=== PATIENT | male | born 1970 | race Caucasian/White ===

== ENCOUNTER 2021-10-14 21:08 | Observation (INO) | payer OTHER, SELFPAY ==
[2021-10-14 21:18] VITALS: BP 147/86; PULSE 123; RESP 26; TEMP 38.6; O2SAT 94; BMI 23.3
--- NOTE | 2021-10-14 21:23 | XRR_ITS ---
PROCEDURE INFORMATION: Exam: XR Chest Exam date and time: 10/14/2021 10:14 PM Age: 51 years old Clinical indication: Fever and shortness of breath; Patient HX: SOB with fever TECHNIQUE: Imaging protocol: Radiologic exam of the chest. Views: 1 view. COMPARISON: CT abdomen pelvis w con* [id number] 10/14/2021 9:57 PM FINDINGS: Lungs: Right lower lobe consolidation noted. Pleural spaces: Unremarkable. No pleural effusion. No pneumothorax. Heart/Mediastinum: No cardiomegaly. Bones/joints: No acute fracture. XR/XR chest 1V portable [id number] IMPRESSION: Right lower lobe consolidation noted. Findings may be seen with pneumonia.
--- NOTE | 2021-10-14 21:23 | CTR_ITS ---
PROCEDURE INFORMATION: Exam: CT Abdomen And Pelvis With Contrast Exam date and time: 10/14/2021 9:57 PM Age: 51 years old Clinical indication: Abdominal pain; Generalized; Prior surgery; Surgery type: Appy; Patient HX: C/O diffuse abd pain with fever. TECHNIQUE: Imaging protocol: Computed tomography of the abdomen and pelvis with contrast. Radiation optimization: All CT scans at this facility use at least one of these dose optimization techniques: automated exposure control; mA and/or kV adjustment per patient size (includes targeted exams where dose is matched to clinical indication); or iterative reconstruction. Contrast material: OMNI 350; Contrast volume: 80 ml; Contrast route: INTRAVENOUS (IV); COMPARISON: No relevant prior studies available. RADIATION DOSE METRICS: Total DLP (mGy-cm): 588.23 FINDINGS: Lungs: Severe right lower lobe pneumonia. Liver: Normal. No mass. Gallbladder and bile ducts: Normal. No calcified stones. No ductal dilation. Pancreas: Normal. No ductal dilation. Spleen: Normal. No splenomegaly. Adrenal glands: Normal. No mass. Kidneys and ureters: Right renal simple cyst measuring >1.0 cm . Multiple left renal simple cysts with the largest measuring > 1.0 cm. Stomach and bowel: Unremarkable. No obstruction. No mucosal thickening. Appendix: No evidence of appendicitis. Intraperitoneal space: Unremarkable. No free air. No significant fluid collection. Vasculature: Calcification of the abdominal aorta and/or iliac arteries consistent with atherosclerotic vessel disease. Lymph nodes: Unremarkable. No enlarged lymph nodes. Urinary bladder: Unremarkable as visualized. Reproductive: Nonspecific prostate calcifications. Bones/joints: Unremarkable. No acute fracture. Soft tissues: Unremarkable. CT/CT abdomen pelvis w con* [id number] IMPRESSION: 1. Severe right lower lobe pneumonia which may be a destructive pneumonia. 2. No acute abdominal findings. COMMENTS: Consistent with the [employer]'s Incidental Findings Committee white paper (J Am Franklin Radiol 2018): Any incidental renal lesion less than 1 cm or classified as too small to characterize, or any incidental cystic renal lesion characterized as simple-appearing, is likely benign. No follow-up imaging is recommended for these lesions per consensus recommendations based on imaging criteria.
--- NOTE | 2021-10-14 21:28 | W.ED.NAVMDI ---
HPI - Nausea/Vomiting/Diarrhea General: Chief complaint: Nausea/Vomiting/Diarrhea Stated complaint: N/V Time Seen by Provider: 10/14/21 21:23 Source: patient Mode of arrival: ambulatory Limitations: no limitations History of Present Illness: 51-year-old male who is a smoker along with heavy drinker and states that he has been having vomiting since states not been able to tolerate any p.o. has had multiple episodes of vomiting states has been feeling dehydrated he states today has been having fevers as well he does have a fever here 1-1.4. Denies headache or neck pain he does have body aches denies any shortness of breath denies any abdominal pain has some very mild cramping. Denies any diarrhea. Associated nausea: Yes Associated symtoms: Reports nausea; Denies chest pain, dysuria or headache(s) Review of Systems Const: Reports: fever(s), chills and body aches Eyes: Denies: blurry vision or eye discomfort ENMT: Denies: throat pain or dental pain Card: Denies: chest pain Resp: Denies: dyspnea GI: Reports: nausea and vomiting : Denies: dysuria Musc: Denies: neck pain or back pain Skin/Breast: Denies: rash Neuro: Denies: headache(s) Psych: Denies: depression Gio/Lymph: Denies: easy bruising All/Imm: Denies: urticaria PFSH ED PFSH: Medical History (Updated 10/14/21 @ 22:54 by Li Garcia MD) No pertinent past medical history Social History Smoking and tobacco status: current every day smoker Physical Exam Const: COMMON NORMALS: patient oriented x3 HENMT: COMMON NORMALS: normocephalic and atraumatic HEAD & SCALP: normocephalic and atraumatic Eye: COMMON NORMALS: Equal, round and reactive pupils present and EOMs intact bilaterally PUPIL: Yes Equal, round and reactive pupils present Neck/C-Spine: COMMON NORMALS: full ROM and supple Chest: COMMONS NORMALS: normal inspection of the chest and normal palpation of entire chest wall Resp: COMMON NORMALS: normal respiratory effort, No retractions, No use of accessory muscles and clear to auscultation bilaterally AUSCULTATION: clear to auscultation bilaterally Cardio: COMMON NORMALS: regular rhythm and No murmurs present (Cardio) RATE: tachycardic RHYTHM: regular rhythm GI: COMMON NORMALS: Normal to inspection, nondistended, normoactive bowel sounds present, Soft to palpation, non-tender and no masses PALPATION: Yes Soft to palpation Extremity: COMMON NORMALS: normal to inspection and full ROM Neuro: COMMON NORMALS: patient oriented x3, moves all extremities and no focal motor deficits Psych: COMMON NORMALS: mental status grossly normal, Normal thought process present and cooperative THOUGHT PROCESS: Normal thought process present Skin: COMMON NORMALS: no rashes or lesions noted and no wounds GENERAL SKIN EXAM: no rashes or lesions noted Course Vital Signs: Vital signs: Vital Signs Temperature 101.4 F H 10/14/21 21:18 Pulse Rate 90 10/14/21 23:02 Respiratory Rate 18 10/14/21 23:02 Blood Pressure 111/66 10/14/21 23:02 Pulse Oximetry 96 10/14/21 23:02 Oxygen Delivery Me thod 10/14/21 23:02 MDM - Nausea/Vomiting/Diarrhea Medical Decision Making Patient presents with fever along with vomiting he also has a significant right lower lobe pneumonia on x-ray and CT of his abdomen. Patient has had vomiting I feel he will likely not be able to tolerate p.o. antibiotics spoke to hospitalist will admit at this time for IV antibiotics. Lab Data : 10/14/21 21:36 10/14/21 21:36 Radiology Impressions Abdomen/Pelvis CT 10/14/21 21:23 IMPRESSION: 1. Severe right lower lobe pneumonia which may be a destructive pneumonia. 2. No acute abdominal findings. COMMENTS: Consistent with the [employer]'s Incidental Findings Committee white paper (J Am Franklin Radiol 2018): Any incidental renal lesion less than 1 cm or classified as too small to characterize, or any incidental cystic renal lesion characterized as simple-appearing, is likely benign. No follow-up imaging is recommended for these lesions per consensus recommendations based on imaging criteria. Laboratory Results WBC 9.8 10^3/uL (4.0-10.0) 10/14/21 21:36 RBC 4.67 10^6/uL (4.1-5.3) 10/14/21 21:36 Hgb 15.1 g/dL (11.7-16.6) 10/14/21 21:36 Hct 43.0 % (42.0-52.0) 10/14/21 21:36 MCV 92.1 fl (80-94) 10/14/21 21:36 MCH 32.3 pg (28.0-34.0) 10/14/21 21:36 MCHC 35.1 g/dL (30.0-36.0) 10/14/21 21:36 RDW 12.7 % (12.1-15.1) 10/14/21 21:36 Plt Count 265 10^3/cmm (130-400) 10/14/21 21:36 MPV 9.7 fL (7.4-10.4) 10/14/21 21:36 Neut % (Auto) 82.3 % 10/14/21 21:36 Lymph % (Auto) 10.2 % 10/14/21 21:36 Cascade % (Auto) 6.3 % 10/14/21 21:36 Eos % (Auto) 0.2 % 10/14/21 21:36 Baso % (Auto) 0.4 % 10/14/21 21:36 Neut # (Auto) 8.03 10^3/uL (1.8-7.7) H 10/14/21 21:36 Lymph # (Auto) 1.0 10^3/uL (0.8-4.8) 10/14/21 21:36 Cascade # (Auto) 0.6 10^3/uL (0.2-0.9) 10/14/21 21:36 Eos # (Auto) 0.0 10^3/uL (0.0-0.8) 10/14/21 21:36 Baso # (Auto) 0.0 10^3/uL (0.0-0.1) 10/14/21 21:36 Nucleated RBC % (auto) 0 % 10/14/21 21:36 Nucleated RBCs # 0.0 /100WBC 10/14/21 21:36 Sodium 133 mmol/L (136-145) L 10/14/21 21:36 Potassium 3.2 mmol/L (3.5-5.1) L 10/14/21 21:36 Chloride 95 mmol/L (98-107) L 10/14/21 21:36 Carbon Dioxide 23 mmol/L (22-29) 10/14/21 21:36 Anion Gap 18.2 (5-19) 10/14/21 21:36 BUN 10 mg/dL (6-20) 10/14/21 21:36 Creatinine 0.7 mg/dL (0.7-1.2) 10/14/21 21:36 GFR Calculation 119.9 mL/min (90-130) 10/14/21 21:36 Glucose 126 mg/dL (65-115) H 10/14/21 21:36 Calculated Osmolality 277 mOsm/kg (285-295) L 10/14/21 21:36 Lactate 1.4 mmol/L (0.5-2.2) 10/14/21 21:36 Calcium 8.7 mg/dL (8.5-10.5) 10/14/21 21:36 Total Bilirubin 0.5 mg/dL (0.15-1.2) 10/14/21 21:36 AST 93 U/L (0-40) H 10/14/21 21:36 ALT 81 U/L (0-41) H 10/14/21 21:36 Alkaline Phosphatase 182 U/L (40-130) H 10/14/21 21:36 Total Protein 6.4 g/dL (6.6-8.7) L 10/14/21 21:36 Albumin 3.3 g/dL (3.5-5.2) L 10/14/21 21:36 Globulin 3.1 g/dL (1.3-4.6) 10/14/21 21:36 Lipase 49 U/L (13-60) 10/14/21 21:36 SARS-CoV-2 Ag (Rapid) Negative (Negative) 10/14/21 21:50 Discharge Plan Discharge Patient Disposition: Admitted As Inpatient Clinical Impression: Vomiting Pneumonia Qualifiers: Pneumonia type: due to unspecified organism Laterality: right Lung location: lower lobe of lung Qualified Code(s): J18.9 - Pneumonia, unspecified organism Condition: Stable Coding Level of Care Code ED Pancake Professional for [facility] Fwd Exam Comprehensive
[2021-10-14 21:36] VITALS: BP 123/89; PULSE 103; RESP 20; O2SAT 96
[2021-10-14] MEDS: acetaminophen 325 mg Tablet 650 MG PO (21:42)
[2021-10-14] MEDS: sodium chloride 0.9% 1,000 ML 999 ML IV ×2 (21:42→22:43)
[2021-10-14] MEDS: ondansetron 2 mg/ML SDV 2 mL 4 MG IVP (21:43)
[2021-10-14 21:48] VITALS: RESP 18
[2021-10-14] MEDS: morphine 4 mg/mL SDV 1 mL IVP (21:48)
[2021-10-14] MEDS: iohexol 350 mg/mL 100 mL Btl IV (21:58)
[2021-10-14 22:03] LABS: Basophils % 0.4 %; Eosinophils % 0.2 %; Hemoglobin 15.1 g/dL (11.7-16.6); Lymphocytes % 10.2 %; Mean Corpuscular HGB Conc 35.1 g/dL (30.0-36.0); Mean Corpuscular Hemoglobin 32.3 pg (28.0-34.0); Mean Corpuscular Volume 92.1 fl (80-94); Mean Platelet Volume 9.7 fL (7.4-10.4); Monocytes # 0.6 10^3/uL (0.2-0.9); Monocytes % 6.3 %; Neutrophils # 8.03 10^3/uL (1.8-7.7); Neutrophils % 82.3 %; Nucleated Red Blood Cells % 0 %; Platelet Count 265 10^3/cmm (130-400); Red Blood Count 4.67 10^6/uL (4.1-5.3); Red Cell Distribution Width 12.7 % (12.1-15.1); White Blood Count 9.8 10^3/uL (4.0-10.0)
[2021-10-14 22:22] LABS: SARS Covid-2 Antigen Negative (Negative)
[2021-10-14 22:26] LABS: Alanine Aminotransferase 81 U/L (0-41); Albumin Level 3.3 g/dL (3.5-5.2); Alkaline Phosphatase 182 U/L (40-130); Anion Gap 18.2 (5-19); Aspartate Amino Transferase 93 U/L (0-40); Blood Urea Nitrogen 10 mg/dL (6-20); Calcium 8.7 mg/dL (8.5-10.5); Carbon Dioxide 23 mmol/L (22-29); Chloride 95 mmol/L (98-107); Globulin 3.1 g/dL (1.3-4.6); Glomerular Filtration Rate 119.9 mL/min (90-130); Glucose 126 mg/dL (65-115); Lipase 49 U/L (13-60); Osmolality Calculated 277 mOsm/kg (285-295); Potassium 3.2 mmol/L (3.5-5.1); Sodium 133 mmol/L (136-145); Total Bilirubin 0.5 mg/dL (0.15-1.2); Total Protein 6.4 g/dL (6.6-8.7)
[2021-10-14 22:28] LABS: Lactate (Lactic Acid level) 1.4 mmol/L (0.5-2.2)
[2021-10-14 23:02] VITALS: BP 111/66; PULSE 90; RESP 18; O2SAT 96
[2021-10-14] MEDS: cefTRIAXone 1,000 MG in sodium chloride 0.9% (plus) 50 ML 100 MG IV (23:03)
[2021-10-14] MEDS: azithromycin 500 MG in sodium chloride 0.9% 250 ML 250 MG IV (23:05)
[2021-10-14 23:07] VITALS: TEMP 36.9
[2021-10-14 23:26] LABS: Bilirubin Urine 1+ (Negative); Blood Urine 2+ (Negative); Glucose Urine UA Norm (Normal); Ketones Urine Negative (Negative); Nitrate Urine Negative (Negative); Protein Urine 1+ (Negative); Urine Appearance Clear (CLEAR); Urine Color Yellow (Yellow); pH Urine 7 (5-7)
[2021-10-14 23:27] LABS: Add Urine Microscopic? YES; Leukocyte Esterase Urine Trace (Negative); RBC Urine 0-4 /hpf (0-2); Squamous Epithelial Cell Urine 0-4 /hpf (0-5); Urobilinogen Urine 8 mg/dL (Negative); WBC Urine 0-4 /hpf (0-5)
[2021-10-14 23:28] LABS: Add Urine Culture? No
--- NOTE | 2021-10-14 23:53 | P.HP_ITS ---
Providers/Chief Complaint Chief Complaint: N/V History of Present Illness Stephane Machuca is a 51 year old male with no significant past medical history, history of alcoholism, history of gastritis, who presents [facility] due to nausea, vomiting, fatigue, malaise. He tells me that since he started to develop nausea, vomiting, no fevers, no chills, his appetite decre ased, he is having adequate bowel movements, denies a history of food poisoning, denies any hematemesis, denies any specific abdominal pain complaints. As he was not able to keep down any solids or liquids he came to the emergency room for evaluation, currently he is eating a sandwich, his nausea has resolved after nausea medications and he is feeling better. He does report some abdominal distention, but no abdominal tenderness. He does report that he drinks alcohol, regularly, at least 1-2 drinks a day, hard liquor, his last drink was roughly a week ago no history of alcohol withdrawal, no history of blacking out. Denies any shortness of breath, does report chills and subjective fevers. No sick contacts, does report marijuana use. Review of Systems Const: Reports: fever(s), chills and body aches Card: Denies: chest pain Resp: Reports: non-productive cough; Denies: dyspnea GI: Reports: nausea and vomiting; Denies: abdominal pain : Denies: flank pain Medications/Allergies Home Medications Medication Instructions Recorded Confirmed Last Taken Type omeprazole 40 mg capsule,delayed 40 mg PO DAILY 8 weeks #60 caps 10/14/21 10/14/21 Unknown Rx release ondansetron 8 mg disintegrating 8 mg PO Q8H PRN nausea and 10/14/21 10/14/21 Unknown Rx tablet vomiting 5 days #14 tabs Allergies Allergy/AdvReac Type Severity Reaction Status Date / Time No Known Allergies Allergy Verified 10/14/21 16:40 PFSH Acute PFSH: Medical History (Updated 10/15/21 @ 00:00 by Eduin Baltazar MD) No pertinent past medical history Surgical History (Updated 10/14/21 @ 23:57 by Eduin Baltazar MD) No pertinent past surgical history Family History (Updated 10/14/21 @ 23:57 by Eduin Baltazar MD) Mother Diabetes Father CAD (coronary artery disease) Social History (Updated 10/14/21 @ 23:57 by Eduin Baltazar MD) Smoking and tobacco status: current every day smoker Alcohol intake: current Substance/Drug Use: current Substance/Drug use type: Marijuana Vitals/I&O/Wt Last Vital Signs Temp 98.5 F 10/14/21 23:07 Pulse 90 10/14/21 23:02 Resp 18 10/14/21 23:02 BP 111/66 10/14/21 23:02 Pulse Ox 96 10/14/21 23:02 O2 Del Method 10/14/21 23:02 10/14/21 10/14/21 10/15/21 14:59 22:59 06:59 Intake Total 1000 / 1000 1050 / 2050 Balance 1000 / 1000 1050 / 0 Weight last 48 hrs Weight 78.29 kg Physical Exam Const: COMMON NORMALS: no acute distress and patient oriented x3 HENMT: COMMON NORMALS: normocephalic HEAD & SCALP: normocephalic Eye: COMMON NORMALS: Equal, round and reactive pupils present and EOMs intact bilaterally Neck/C-Spine: COMMON NORMALS: no JVD Resp: COMMON NORMALS: normal respiratory effort, No retractions, No use of accessory muscles and clear to auscultation bilaterally AUSCULTATION: clear to auscultation bilaterally Cardio: COMMON NORMALS: no JVD, regular rate, regular rhythm, S1 normal heart sound present and S2 normal heart sound present RATE: regular rate RHYTHM: regular rhythm HEART SOUNDS: S1 normal heart sound present and S2 normal he art sound present GI: COMMON NORMALS: Normal to inspection, nondistended, normoactive bowel sounds present, Soft to palpation, non-tender, No hepatosplenomegaly present, no masses and no bruits PALPATION: Yes Soft to palpation and Yes No hepatosplenomegaly present Extremity: COMMON NORMALS: capillary refill normal, no clubbing, cyanosis or edema, no calf tenderness and no pedal edema Neuro: COMMON NORMALS: patient oriented x3, CN's II-XII intact bilaterally, moves all extremities and no focal motor deficits Psych: COMMON NORMALS: mental status grossly normal Data : 10/14/21 21:36 10/14/21 21:36 Micro: Microbiology 10/14/21 22:26 Blood Culture - Preliminary Blood SPECIMEN COLLECTED 10/14/21 22:21 Blood Culture - Preliminary Blood SPECIMEN COLLECTED A&P Assessment and plan (1) Pneumonia: Status: Acute Qualifiers: Laterality: right Lung location: lower lobe of lung Pneumonia type: due to unspecified organism Qualified Code(s): J18.9 - Pneumonia, unspecified organism (2) Vomiting: Status: Acute (3) Intractable nausea and vomiting: Status: Acute Plan Intractable nausea and vomiting -Potentially related to gastroenteritis, or marijuana hyperemesis syndrome -Continue IV hydration -Zofran for nausea control -Protonix for GI prophylaxis -Lovenox for DVT prophylaxis -Full code Right lower lobe pneumonia -Not requiring oxygen -Does report cough -Likely aspiration -Continue Zosyn, continue Rocephin -Blood cultures, sputum cultures, -Monitor respiratory status History of alcoholism -Monitor for alcohol withdrawal, CIWA protocol Hypokalemia, replace Attestations Medical Necessity Statement*: Patient requires hospitalization, outpatient with observation, for pneumonia, intractable nausea vomiting Coding Level of Care Code Acute Sales Order Specialist for [facility] Diagnoses Pneumonia J18.9 Laterality: right Lung location: lower lobe of lung Pneumonia type: due to unspecified organism Vomiting R11.10 Intractable nausea and vomiting R11.2
[2021-10-15] VITALS (64 sets, daily range): BP systolic 100–139; BP diastolic 72–96; PULSE 75–106; RESP 12–44; TEMP 36.7–38.1; O2SAT 81–100; BMI 23.3
--- NOTE | 2021-10-15 00:36 | PC.NURSE ---
Pt resting quietly. Requested pudding. This was provided.
[2021-10-15 00:43] LABS: Magnesium 2.1 mg/dL (1.7-2.3)
[2021-10-15 00:53] LABS: Lactic Sepsis W/Reflex 0.8 mmol/L (0.5-2.2)
--- NOTE | 2021-10-15 02:28 | PC.NURSE ---
Updated pt on plan for bed assignment. Pt requests to walk to bathroom. Pt unhooked and ambulatory to bathroom. NAD.
--- NOTE | 2021-10-15 03:00 | PC.NURSE ---
Transfer Note Patient transferred to ICU from ER via wheelchair. Handoff received from EULALIO Bruner. Patient oriented to environment and equipment. Covering service notified. Orders reviewed and will continue to monitor. Family and/or outside industrial sales representative notified. Patient alert/oriented x4 on room air upon transfer to ICU. All patient belongings placed at bedside.
[2021-10-15] MEDS: potassium chloride ER 20 mEq Tablet 40 MEQ PO (03:20)
[2021-10-15] MEDS: enoxaparin 40 mg/0.4 mL Syringe SUBCUT (03:20)
[2021-10-15] MEDS: pantoprazole 40 mg SDV IVP ×2 (03:21→15:17)
[2021-10-15] MEDS: sodium chloride 0.9% 1,000 ML 75 ML IV ×2 (03:22→16:42)
[2021-10-15 04:48] LABS: Basophils % 0.3 %; Eosinophils % 0.4 %; Hematocrit 39.3 % (42.0-52.0); Hemoglobin 13.4 g/dL (11.7-16.6); Lymphocytes # 1.1 10^3/uL (0.8-4.8); Lymphocytes % 13.6 %; Mean Corpuscular HGB Conc 34.1 g/dL (30.0-36.0); Mean Corpuscular Volume 93.8 fl (80-94); Mean Platelet Volume 9.7 fL (7.4-10.4); Monocytes # 0.5 10^3/uL (0.2-0.9); Monocytes % 6.4 %; Neutrophils # 6.16 10^3/uL (1.8-7.7); Neutrophils % 78.4 %; Nucleated Red Blood Cells % 0 %; Platelet Count 231 10^3/cmm (130-400); Red Blood Count 4.19 10^6/uL (4.1-5.3); Red Cell Distribution Width 12.7 % (12.1-15.1); White Blood Count 7.9 10^3/uL (4.0-10.0)
[2021-10-15 04:56] LABS: Lactate (Lactic Acid level) 0.8 mmol/L (0.5-2.2)
[2021-10-15 05:15] LABS: Alanine Aminotransferase 56 U/L (0-41); Albumin Level 2.4 g/dL (3.5-5.2); Alkaline Phosphatase 138 U/L (40-130); Anion Gap 11.4 (5-19); Aspartate Amino Transferase 50 U/L (0-40); Blood Urea Nitrogen 7 mg/dL (6-20); Calcium 7.7 mg/dL (8.5-10.5); Carbon Dioxide 25 mmol/L (22-29); Chloride 102 mmol/L (98-107); Globulin 3.5 g/dL (1.3-4.6); Glomerular Filtration Rate 119.9 mL/min (90-130); Glucose 122 mg/dL (65-115); Magnesium 2.1 mg/dL (1.7-2.3); Osmolality Calculated 279 mOsm/kg (285-295); Phosphorus 2.4 mg/dL (2.5-4.5); Potassium 3.4 mmol/L (3.5-5.1); Sodium 135 mmol/L (136-145); Total Bilirubin 0.3 mg/dL (0.15-1.2); Total Protein 5.9 g/dL (6.6-8.7)
[2021-10-15 05:33] LABS: Hepatitis A Antibody IgM Non-Reactive (Nonreactive); Hepatitis B Core IgM Non-Reactive (Nonreactive); Hepatitis B Surface Antigen Non-Reactive (Nonreactive); Hepatitis C Virus Antibody Non-Reactive (Nonreactive)
[2021-10-15 05:54] LABS: Procalcitonin 0.22 ng/mL (0-0.5)
--- NOTE | 2021-10-15 06:23 | PC.NURSE ---
Shift Note Frequent safety and comfort rounds continue. Orders and/or nursing care completed as indicated. Patient monitored for response to intervention and treatment(s). Education provided includes medication. Patient verbalized understanding of teaching. Patient had an uneventful shift, remains alert/oriented x4 on room air. No wounds or skin issues noted at this time. IVF infusing per order, please see MAR for detail. Will continue to monitor.
[2021-10-15 08:42] LABS: Thyroid Stimulating Hormone 3.11 uIU/mL (0.27-4.20)
[2021-10-15] MEDS: thiamine 100 mg Tablet PO (08:51)
[2021-10-15] MEDS: multivitamin therapeutic Tablet 1 TAB PO (08:51)
[2021-10-15] MEDS: folic acid 1 mg Tablet PO (08:51)
[2021-10-15] MEDS: acetaminophen 325 mg Tablet 650 MG PO ×3 (09:34→20:02)
--- NOTE | 2021-10-15 11:33 | PC.CHAP ---
Pastoral Care Encounter/Spiritual Assessment Type of Contact [] Declined commodity supervisor visit [] Patient/Family/Request visit [] Outpatient visit [] Follow-up visit [] Physician referral [] Code/Alert [x] Routine visit [] Staff referral [] Actively dying [x] Patient sleeping [] Family support [] [] Out of room [] Palliative care [] [] Receiving care in room [] Pre-surgical visit [] Trauma [] Long length of stay [x] ICU visit [] Other: Relational/Emotional Strength [] Patient feels connected with others/family/visitors/staff [] Distress [] Loneliness/isolation [] Abandonment Spirituality of Patient [] Person of Bessie [] Attends Cheondoism of their Bessie [] Believes in Prayer [] Reads Bible or Sabianism materials [] There are Spiritual issues to be addressed Sand Hauler Interventions [x] Prayer [] Active listening [] Non-anxious presence [] Spiritual/emotional support [] Crisis/trauma care [] Spiritual counseling [] Bereavement support [] Provided bereavement packet [] Provided Bible/devotional materials [] Provided toy/stuffed animal, coloring book to patient or family member [] Provided Communion [] Anointing/[place] [] Salvation [x] Completed spiritual assessment [] Other: Impact on Illness or Injury [] Angry [] Fearful [] Anxious [] Often cries [] Exhaustion [] Unable to work [] Unable to attend rastafari [] Unable to walk/stand [] Unable to read [] Unable to drive [] Unable to eat/drink [] Unable to sleep [] Unable to be with family [] Patient intubated [] Other: Summary Time spent with patient
--- NOTE | 2021-10-15 12:22 | P.PN_ITS ---
Subjective Subjective: Patient is still spiking low-grade fever Currently he is on room air Patient is endorsing feeling better Will allow him to eat No vomiting since 9 PM Vitals/I&O/Wt Last Vital Signs Temp 100.3 F H 10/15/21 12:00 Pulse 92 10/15/21 12:00 Resp 23 H 10/15/21 12:00 BP 120/73 10/15/21 12:00 Pulse Ox 95 10/15/21 12:00 O2 Del Method 10/15/21 04:11 10/14/21 10/15/21 10/15/21 22:59 06:59 14:59 Intake Total 1000 / 1000 1540 / 2540 480 / 480 Balance 1000 / 1000 1540 / 2540 480 / 480 Weight last 48 hrs Weight 80.343 kg Weight 78.29 kg Physical Exam Narrative: Awake and alert Dehydrated No active signs of withdrawal Endorses to alcohol and marijuana use Nonfocal neuro exam Currently on room air Febrile No signs of confusion Looks dehydrat no murmur, S1, S2 Data : 10/15/21 04:07 10/15/21 04:07 Micro: Microbiology 10/14/21 22:54 Bacterial Antigens - Final Urine,Clean Catch 10/14/21 22:26 Blood Culture - Preliminary Blood SPECIMEN COLLECTED 10/14/21 22:21 Blood Culture - Preliminary Blood SPECIMEN COLLECTED A&P Assessment and plan (1) Intractable nausea and vomiting: Status: Acute (2) Pneumonia: Status: Acute Qualifiers: Laterality: right Lung location: lower lobe of lung Pneumonia type: due to unspecified organism Qualified Code(s): J18.9 - Pneumonia, unspecified organism (3) Vomiting: Status: Acute Plan Alcohol abuse Marijuana abuse Community-acquired pneumonia/aspiration pneumonia Continue antibiotics Currently on room air 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
[2021-10-15] MEDS: cefTRIAXone 1,000 MG in sodium chloride 0.9% (plus) 50 ML 100 MG IV (23:04)
[2021-10-15] MEDS: azithromycin 500 MG in sodium chloride 0.9% 250 ML 250 MG IV (23:46)
--- NOTE | 2021-10-15 23:52 | USR_ITS ---
PROCEDURE INFORMATION: Exam: US Abdomen Complete Exam date and time: 10/15/2021 1:08 AM Age: 51 years old Clinical indication: Fever and nausea and vomiting; Patient HX: Note that patient denies any abdominal pain. He came in to the er due to nausea and vomiting, being febrile, but no pain; Additional info: Gallbladder, liver TECHNIQUE: Imaging protocol: Real-time ultrasound of the abdomen with image documentation. Complete exam. COMPARISON: CT abdomen pelvis w con* [id number] 10/14/2021 9:57 PM FINDINGS: Liver: No mass. Gallbladder: The gallbladder is contracted. Reported negative sonographic Martinez sign. Biliary ducts: Normal. No stones. No dilation. Pancreas: The pancreas was not visualized due to overlying bowel gas. Right kidney: There is a 4 x 3.1 x 3.8 cm anechoic avascular cystic structure consistent with a parapelvic cyst noted in the right kidney as seen on recent CT. Left kidney: No mass. No hydronephrosis. Spleen: No splenomegaly. Aorta: No aneurysm. Inferior vena cava: Patent. US/US abdomen complete* [id number] IMPRESSION: No acute findings.
[2021-10-16] VITALS (11 sets, daily range): BP systolic 99–136; BP diastolic 67–93; PULSE 84–91; RESP 16–38; TEMP 37.3–37.4; O2SAT 89–97
[2021-10-16] MEDS: ondansetron 2 mg/ML SDV 2 mL 4 MG IVP (00:01)
[2021-10-16] MEDS: pantoprazole 40 mg SDV IVP (02:19)
[2021-10-16] MEDS: enoxaparin 40 mg/0.4 mL Syringe SUBCUT (02:20)
[2021-10-16 03:55] LABS: Basophils % 0.3 %; Eosinophils # 0.1 10^3/uL (0.0-0.8); Eosinophils % 0.9 %; Hematocrit 35.5 % (42.0-52.0); Lymphocytes # 1.3 10^3/uL (0.8-4.8); Lymphocytes % 17.1 %; Mean Corpuscular HGB Conc 33.8 g/dL (30.0-36.0); Mean Corpuscular Hemoglobin 32.1 pg (28.0-34.0); Mean Corpuscular Volume 94.9 fl (80-94); Mean Platelet Volume 9.9 fL (7.4-10.4); Monocytes # 0.7 10^3/uL (0.2-0.9); Monocytes % 8.9 %; Neutrophils # 5.45 10^3/uL (1.8-7.7); Neutrophils % 71.6 %; Nucleated Red Blood Cells % 0 %; Platelet Count 255 10^3/cmm (130-400); Red Blood Count 3.74 10^6/uL (4.1-5.3); Red Cell Distribution Width 12.9 % (12.1-15.1); White Blood Count 7.6 10^3/uL (4.0-10.0)
[2021-10-16 04:17] LABS: Lactate (Lactic Acid level) 0.8 mmol/L (0.5-2.2)
[2021-10-16 04:34] LABS: Alanine Aminotransferase 38 U/L (0-41); Albumin Level 2.5 g/dL (3.5-5.2); Alkaline Phosphatase 117 U/L (40-130); Anion Gap 14.4 (5-19); Aspartate Amino Transferase 25 U/L (0-40); Blood Urea Nitrogen 5 mg/dL (6-20); C Reactive Protein 152.1 mg/L (0.0-4.9); Calcium 7.7 mg/dL (8.5-10.5); Carbon Dioxide 24 mmol/L (22-29); Chloride 100 mmol/L (98-107); Globulin 2.5 g/dL (1.3-4.6); Glomerular Filtration Rate 102.7 mL/min (90-130); Glucose 93 mg/dL (65-115); Magnesium 2.1 mg/dL (1.7-2.3); Osmolality Calculated 277 mOsm/kg (285-295); Potassium 3.4 mmol/L (3.5-5.1); Sodium 135 mmol/L (136-145); Total Bilirubin 0.3 mg/dL (0.15-1.2)
[2021-10-16 04:36] LABS: Procalcitonin 0.18 ng/mL (0-0.5)
[2021-10-16] MEDS: sodium chloride 0.9% 1,000 ML 75 ML IV (06:41)
[2021-10-16] MEDS: folic acid 1 mg Tablet PO (07:44)
[2021-10-16] MEDS: multivitamin therapeutic Tablet 1 TAB PO (07:45)
[2021-10-16] MEDS: thiamine 100 mg Tablet PO (07:45)
[2021-10-16] MEDS: sennosides-docusate Tablet 2 TAB PO (08:56)
--- NOTE | 2021-10-16 10:11 | P.DS_ITS ---
Discharge Providers Date of Admission: 10/14/21 22:53 Date of Discharge: October 16, 2021 Attending Provider at Admission: Eduin Baltazar MD Attending Provider at Discharge: Zuri Vazquez MD Diagnoses at Discharge Discharge Diagnosis (1) Intractable nausea and vomiting: Status: Acute (2) Pneumonia: Status: Acute Qualifiers: Laterality: right Lung location: lower lobe of lung Pneumonia type: due to unspecified organism Qualified Code(s): J18.9 - Pneumonia, unspecified organism (3) Vomiting: Status: Acute Reason for Visit Reason for Visit: N/V Hospital Course Hospital Course 51-year-old male who is an active smoker, uses marijuana and alcohol on daily basis presented with recurrent nausea and vomiting 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 Abdominal imaging did not show any obstruction appendicitis or gallbladder infection. In the hospital he did not experience any emesis, he tolerated his diet. He was diagnosed with right lower lobe pneumonia which most likely is aspiration pneumonia. He was given ceftriaxone and azithromycin. His fever subsided, no severe leukocytosis. Cultures negative to date. He will be discharged home on albuterol, Augmentin 10-day regimen along thiamine and folic acid. PCP follow-up with Dr. Gutierrez, chest x-ray for 6 weeks Physical Exam Narrative: Awake and alert Nonfocal neuro exam Abdomen soft Bowel sound present Currently on room air Patient is euvolemic No active diarrhea or vomiting Saturating well on room air Discharge Data Studies Completed and Pending Completed Studies During Hospitalization Category Date Time Status CT abdomen pelvis w con* [id number] Stat Cat Scan 10/14/21 21:23 Completed XR chest 1V portable [id number] Stat Exams 10/14/21 21:23 Completed US abdomen complete* [id number] Stat Ultrasound 10/15/21 23:52 Completed Pending at discharge Category Date Time Status Blood Culture Stat Lab 10/14/21 22:26 Results C Reactive Protein AM LABS Lab 10/17/21 04:00 Ordered Complete Blood Count w/Auto AM LABS Lab 10/17/21 04:00 Ordered Comprehensive Metabolic Panel AM LABS Lab 10/17/21 04:00 Ordered Lactate (Lactic Acid level) AM LABS Lab 10/17/21 04:00 Ordered Magnesium AM LABS Lab 10/17/21 04:00 Ordered Phosphorus AM LABS Lab 10/17/21 04:00 Ordered Procalcitonin AM LABS Lab 10/17/21 04:00 Ordered Sputum Culture and Gram Stain Stat Lab 10/15/21 00:27 Results Radiology Impressions Abdomen/Pelvis CT 10/14/21 21:23 IMPRESSION: 1. Severe right lower lobe pneumonia which may be a destructive pneumonia. 2. No acute abdominal findings. COMMENTS: Consistent with the [employer]'s Incidental Findings Committee white paper (J Am Franklin [employer]iol 2018): Any incidental renal lesion less than 1 cm or classified as too small to characterize, or any incidental cystic renal lesion characterized as simple-appearing, is likely benign. No follow-up imaging is recommended for these lesions per consensus recommendations based on imaging criteria. Chest X-Ray 10/14/21 21:23 IMPRESSION: Right lower lobe consolidation noted. Findings may be seen with pneumonia. Abdomen Ultrasound 10/15/21 23:52 IMPRESSION: No acute findings. Laboratory Results WBC 7.6 10^3/uL (4.0-10.0) 10/16/21 03:12 RBC 3.74 10^6/uL (4.1-5.3) L 10/16/21 03:12 Hgb 12.0 g/dL (11.7-16.6) 10/16/21 03:12 Hct 35.5 % (42.0-52.0) L 10/16/21 03:12 MCV 94.9 fl (80-94) H 10/16/21 03:12 MCH 32.1 pg (28.0-34.0) 10/16/21 03:12 MCHC 33.8 g/dL (30.0-36.0) 10/16/21 03:12 RDW 12.9 % (12.1-15.1) 10/16/21 03:12 Plt Count 255 10^3/cmm (130-400) 10/16/21 03:12 MPV 9.9 fL (7.4-10.4) 10/16/21 03:12 Neut % (Auto) 71.6 % 10/16/21 03:12 Lymph % (Auto) 17.1 % 10/16/21 03:12 [place] % (Auto) 8.9 % 10/16/21 03:12 Eos % (Auto) 0.9 % 10/16/21 03:12 Baso % (Auto) 0.3 % 10/16/21 03:12 Neut # (Auto) 5.45 10^3/uL (1.8-7.7) 10/16/21 03:12 Lymph # (Auto) 1.3 10^3/uL (0.8-4.8) 10/16/21 03:12 [place] # (Auto) 0.7 10^3/uL (0.2-0.9) 10/16/21 03:12 Eos # (Auto) 0.1 10^3/uL (0.0-0.8) 10/16/21 03:12 Baso # (Auto) 0.0 10^3/uL (0.0-0.1) 10/16/21 03:12 Nucleated RBC % (auto) 0 % 10/16/21 03:12 Nucleated RBCs # 0.0 /100WBC 10/16/21 03:12 Sodium 135 mmol/L (136-145) L 10/16/21 03:12 Potassium 3.4 mmol/L (3.5-5.1) L 10/16/21 03:12 Chloride 100 mmol/L (98-107) 10/16/21 03:12 Carbon Dioxide 24 mmol/L (22-29) 10/16/21 03:12 Anion Gap 14.4 (5-19) 10/16/21 03:12 BUN 5 mg/dL (6-20) L 10/16/21 03:12 Creatinine 0.8 mg/dL (0.7-1.2) 10/16/21 03:12 GFR Calculation 102.7 mL/min (90-130) 10/16/21 03:12 Glucose 93 mg/dL (65-115) 10/16/21 03:12 Calculated Osmolality 277 mOsm/kg (285-295) L 10/16/21 03:12 Lactic Acid 0.8 mmol/L (0.5-2.2) 10/15/21 00:30 Lactate 0.8 mmol/L (0.5-2.2) 10/16/21 03:12 Calcium 7.7 mg/dL (8.5-10.5) L 10/16/21 03:12 Phosphorus 3.0 mg/dL (2.5-4.5) 10/16/21 03:12 Magnesium 2.1 mg/dL (1.7-2.3) 10/16/21 03:12 Total Bilirubin 0.3 mg/dL (0.15-1.2) 10/16/21 03:12 AST 25 U/L (0-40) 10/16/21 03:12 ALT 38 U/L (0-41) 10/16/21 03:12 Alkaline Phosphatase 117 U/L (40-130) 10/16/21 03:12 C-Reactive Protein 152.1 mg/L (0.0-4.9) H 10/16/21 03:12 Total Protein 5.0 g/dL (6.6-8.7) L 10/16/21 03:12 Albumin 2.5 g/dL (3.5-5.2) L 10/16/21 03:12 Globulin 2.5 g/dL (1.3-4.6) 10/16/21 03:12 Lipase 49 U/L (13-60) 10/14/21 21:36 Procalcitonin 0.18 ng/mL (0-0.5) 10/16/21 03:12 TSH 3.11 uIU/mL (0.27-4.20) 10/15/21 04:07 Urine Color Yellow (Yellow) 10/14/21 22:54 Urine Appearance Clear (CLEAR) 10/14/21 22:54 Urine pH 7 (5-7) 10/14/21 22:54 Ur Specific [place] 1.000 (1.005-1.030) L 10/14/21 22:54 Urine Protein 1+ (Negative) H 10/14/21 22:54 Urine Glucose (UA) Norm (Normal) 10/14/21 22:54 Urine Ketones Negative (Negative) 10/14/21 22:54 Urine Blood 2+ (Negative) H 10/14/21 22:54 Urine Nitrate Negative (Negative) 10/14/21 22:54 Urine Bilirubin 1+ (Negative) H 10/14/21 22:54 Urine Urobilinogen 8 mg/dL (Negative) H 10/14/21 22:54 Ur Leukocyte Esterase Trace (Negative) H 10/14/21 22:54 Urine RBC 0-4 /hpf (0-2) H 10/14/21 22:54 Urine WBC 0-4 /hpf (0-5) H 10/14/21 22:54 Ur Squamous Epith Cells 0-4 /hpf (0-5) H 10/14/21 22:54 Amorphous Sediment Not Reportable 10/14/21 22:54 Urine Bacteria None /hpf (NONE) 10/14/21 22:54 Hepatitis A IgM Ab Non-reactive (Nonreactive) 10/15/21 04:07 Hep Bs Antigen Non-reactive (Nonreactive) 10/15/21 04:07 Hep B Core IgM Ab Non-reactive (Nonreactive) 10/15/21 04:07 Hepatitis C Antibody Non-reactive (Nonreactive) 10/15/21 04:07 SARS-CoV-2 Ag (Rapid) Negative (Negative) 10/14/21 21:50 Vitals Last Vital Signs Temp 99.1 F 10/16/21 07:00 Pulse 86 10/16/21 07:00 Resp 31 H 10/16/21 07:00 BP 120/80 10/16/21 07:00 Pulse Ox 95 10/16/21 07:00 O2 Del Method 10/16/21 07:00 Discharge Plan Discharge Patient Disposition: Home Condition: Stable Prescriptions: New thiamine mononitrate (vit B1) [Vitamin B-1 (mononitrate)] 100 mg Tablet 100 mg PO DAILY Qty: 30 0RF albuterol sulfate 90 mcg/actuation HFA aerosol inhaler 2 inh inhalation Q8H PRN (Reason: shortness of breath or wheezing) Qty: 8.5 2RF folic acid 1 mg Tablet 1 mg PO DAILY Qty: 30 0RF amoxicillin-pot clavulanate 875-125 mg Tablet 1 tab PO BID Qty: 14 0RF Continued omeprazole 40 mg capsule,delayed release(DR/EC) 40 mg PO DAILY 56 Days Qty: 60 0RF ondansetron 8 mg tablet,disintegrating 8 mg PO Q8H PRN (Reason: nausea and vomiting) 5 Days Qty: 14 0RF ibuprofen 200 mg Tablet 600 mg PO Q6H PRN (Reason: Pain) Discharge Orders: Discharge Order (Routine); Ordered 10/16/21 Ordered By: Zuri Vazquez Other Ambulatory Orders: XR chest 2V* [id number] (Routine) Timeframe: 1 Week Facility: [facility] - Location: Radiology [facility] Ordered By: Zuri Vazquez Referrals: Faustino Gutierrez MD [Physician] - 7-10 days Discharge Diet: Usual diet Discharge Activity: Resume usual activity Patient Instructions: Opioid Safety Discharge Attestations Time Spent in Discharge Care*: less than 30 min Quality Metrics Clinical Quality Measures [ No reported AMI, CVA or VTE this stay] Coding Level of Care Code Acute Chg FW DC note Diagnoses Intractable nausea and vomiting R11.2 Pneumonia J18.9 Laterality: right Lung location: lower lobe of lung Pneumonia type: due to unspecified organism Vomiting R11.10
[2021-10-16] MEDS: amoxicillin-clav 875-125 mg Tablet 1 TAB PO (10:28)
--- NOTE | 2021-10-16 11:05 | PC.NURSE ---
Discharge instructions given to patient and , prescriptions sent to [facility]. Patient ambulated to private vehicle with belongings accompanied by me and his .
== END 2021-10-16 11:15 | disposition home or self-care (01) ==
LOC: ER 10-15 02:01 → ICU 10-15 02:24
PROVIDERS: Admitting Provider Family Medicine; Emergency Provider Emergency Medicine; Visit Provider Internal Medicine
DX: J18.9 Pneumonia, unspecified organism (principal); R11.2 Nausea with vomiting, unspecified; Z66 Do not resuscitate; F17.210 Nicotine dependence, cigarettes, uncomplicated
CPT/HCPCS: 36415; 71045; 74177; 76700; 80053; 80074; 81000; 81001; 83605; 83690; 83735; 84100; 84145; 84443; 85025; 86140; 86403; 87040; 87070; 87205; 87426; 94664; 96361; 96365; 96366; 96372; 96375; 96376; 99285; C9113; G0378; J0456; J0696; J1650; J2270; J2405; J3411; J7030; J7050; Q9967

== ENCOUNTER 2021-10-23 13:21 | Outpatient (CLI) | payer OTHER, SELFPAY ==
--- NOTE | 2021-10-23 13:40 | XR_ITS ---
WS: [id number] PA and lateral chest, 10/23/2021 Clinical Data: PNEUMONIA Comparison: Portable chest, 10/14/2021. Findings: No nodules, masses or effusions are seen. Right lower lobe patchy opacity has diminished sl ightly. The left lung remains clear. No pneumothorax is noted. The heart size is normal. The pulmonar y vascularity is not increased. XR/XR chest 2V* [id number] Impression: Minimal clearing of patchy right lower lobe opacity.
== END 2021-10-23 13:22 | disposition home or self-care (01) ==
PROVIDERS: PCP Family Medicine; Visit Provider Internal Medicine
DX: J18.9 Pneumonia, unspecified organism (principal)
CPT/HCPCS: 71046

== ENCOUNTER → 2021-10-24 08:31 | Outpatient (BNVA) | payer OTHER, SELFPAY | PROVIDERS: PCP Family Medicine; Visit Provider Family Medicine | DX: M25.50 Pain in unspecified joint (principal); J69.0 Pneumonitis due to inhalation of food and vomit; Z72.89 Other problems related to lifestyle | CPT/HCPCS: 85651; 86038; 86141; 86431 ==

== ENCOUNTER → 2021-12-10 11:11 | Outpatient (BNVA) | payer OTHER, SELFPAY | PROVIDERS: PCP Family Medicine; Referring Provider Family Medicine; Visit Provider Internal Medicine | DX: M25.50 Pain in unspecified joint (principal); R76.8 Other specified abnormal immunological findings in serum; Z72.89 Other problems related to lifestyle; M05.9 Rheumatoid arthritis with rheumatoid factor, unspecified | CPT/HCPCS: 36415; 73120; 80053; 86160; 86162; 86235; 86255; 86376; 86480 ==

== ENCOUNTER → 2022-03-13 12:52 | Outpatient (BNVA) | payer OTHER, SELFPAY | PROVIDERS: PCP Family Medicine; Visit Provider Family Medicine | DX: R76.8 Other specified abnormal immunological findings in serum (principal); M05.9 Rheumatoid arthritis with rheumatoid factor, unspecified; R21 Rash and other nonspecific skin eruption; M25.50 Pain in unspecified joint; Z51.81 Encounter for therapeutic drug level monitoring | CPT/HCPCS: 80053; 85025; 85651; 86141 ==

== ENCOUNTER → 2022-08-03 15:50 | Outpatient (BNVA) | payer OTHER, SELFPAY | PROVIDERS: PCP Family Medicine; Visit Provider Internal Medicine | DX: M05.9 Rheumatoid arthritis with rheumatoid factor, unspecified (principal); R76.8 Other specified abnormal immunological findings in serum | CPT/HCPCS: 36415; 80053; 85025; 85651; 86140 ==

== ENCOUNTER → 2022-11-11 15:52 | Outpatient (BNVA) | payer OTHER, SELFPAY | PROVIDERS: PCP Family Medicine; Visit Provider Internal Medicine | DX: M05.9 Rheumatoid arthritis with rheumatoid factor, unspecified (principal); Z79.899 Other long term (current) drug therapy | CPT/HCPCS: 80053; 83735; 85025; 85651; 86140 ==

== ENCOUNTER 2023-04-21 01:55 | Emergency (ER) | payer OTHER, SELFPAY ==
[2023-04-21 01:59] VITALS: BP 200/119; PULSE 82; RESP 20; TEMP 36.6; O2SAT 99; BMI 24.4
--- NOTE | 2023-04-21 02:05 | ECG_ITS ---
[facility] Test Date: 2023-04-21 Pat Name: Stephane Machuca Department: Room: Gender: Male [employer] Representative: : 1970 Requested By: Li Garcia Order Number: [id number] Rosibel MD: Tamika Stack M.D. Measurements Intervals [place] Rate: 87 P: 61 AR: 135 QRS: 40 QRSD: 94 T: 47 QT: 357 QTc: 431 Interpretive Statements SINUS RHYTHM No previous ECG available for comparison Electronically Signed On 04-22-2023 10:46:30 BINDING MACHINE OPERATOR by Tamika Stack M.D. [email or web address]
--- NOTE | 2023-04-21 02:06 | XRR_ITS ---
PROCEDURE INFORMATION: Exam: XR Chest Exam date and time: 04/21/2023 2:10 AM Age: 52 years old Clinical indication: Cough and shortness of breath; Additional info: SOB TECHNIQUE: Imaging protocol: Radiologic exam of the chest. Views: 1 view. COMPARISON: CR XR chest 2V* [id number] 10/23/2021 1:46 PM FINDINGS: Lungs: Stable right lower lobe granuloma. Pleural spaces: Unremarkable. No pleural effusion. No pneumothorax. Heart/Mediastinum: Unremarkable. No cardiomegaly. No change comparison. Bones/joints: Mild scattered degenerative changes of the visualized osseous structures. XR/XR chest 1V portable [id number] IMPRESSION: No acute cardiopulmonary findings.
--- NOTE | 2023-04-21 02:12 | ED_ITS ---
HPI - SOB/Dyspnea 2 General: Chief Complaint: Shortness of Breath/Dyspnea Stated Complaint: cp,coughing, back pain Time Seen by Provider: 04/21/23 01:57 Source: patient Mode of arrival: ambulatory Limitations: no limitations History of Present Illness: HPI Narrative: 52-year-old male states that he had a ch ronic cough over the last month. He states that he is a smoker and he coughs been a dry cough. He states that over the last week that he started to have sharp chest pains left side and anterior of his chest that is much worse with palpation along when he coughs. He denies any fevers denies any vomiting. Associated symptoms: Reports chest pain; Deny abdominal pain, fever(s), nausea or vomiting Review of Systems 2 Const: Denies: fever(s), chills, body aches or change in appetite ENMT: Denies: throat pain or dental pain Card: Reports: chest pain Resp: Reports: dyspnea GI: Denies: abdominal pain, nausea, vomiting or diarrhea Musc: Denies: neck pain or back pain Skin/Breast: Denies: rash Neuro: Denies: headache(s) PFSH ED 2 PFSH: Medical History Intractable nausea and vomiting Vomiting Pneumonia No pertinent past medical history Surgical History History of appendectomy No pertinent past surgical history Family History Mother Diabetes Rheumatoid arthritis Father CAD (coronary artery disease) CHF defib/pacemaker Sister Diabetes Grandfather Alcoholism Social History Smoking and tobacco/nicotine status: current every day tobacco/nicotine user cigarettes Packs smoked per day: 0.25 Alcohol intake: current Substance/Drug Use: current Physical Exam 2 Const: COMMON NORMALS: no acute distress, patient oriented x3 and healthy appearing HENMT: COMMON NORMALS: normocephalic and atraumatic HEAD & SCALP: n ormocephalic and atraumatic Eye: COMMON NORMALS: Equal, round and reactive pupils present and EOMs intact bilaterally PUPIL: Yes Equal, round and reactive pupils present Neck/C-Spine: COMMON NORMALS: full ROM and supple Chest: COMMONS NORMALS: normal inspection of the chest OTHER: Point tender over anterior and lateral chest reproduces his pain Resp: COMMON NORMALS: normal respiratory effort, No retractions, No use of accessory muscles and clear to auscultation bilaterally AUSCULTATION: clear to auscultation bilaterally Cardio: COMMON NORMALS: regular rate, regular rhythm and No murmurs present (Cardio) RATE: regular rate RHYTHM: regular rhythm Extremity: COMMON NORMALS: normal to inspection and full ROM Neuro: COMMON NORMALS: patient oriented x3, moves all extremities and no focal motor deficits Psych: COMMON NORMALS: mental status grossly normal, Normal thought process present and cooperative THOUGHT PROCESS: Normal thought process present Skin: COMMON NORMALS: no rashes or lesions noted and no wounds GENERAL SKIN EXAM: no rashes or lesions noted Course 2 Vital Signs: Vital signs: Vital Signs Temperature 98 F 04/21/23 01:59 Pulse Rate 84 04/21/23 02:34 Respiratory Rate 18 04/21/23 02:27 Blood Pressure 200/119 04/21/23 01:59 Pulse Oximetry 97 04/21/23 02:27 Oxygen Delivery Me thod Room Air 04/21/23 02:27 MDM - SOB/Dyspnea Medical Decision Making Patient presents here with chronic cough is going on for a month he is now having chest wall pain likely costochondritis he is point tender EKG x-ray is normal his pain improved we will prescribe Naprosyn and hydrocodone he is follow-up with PCP in 4 to 7 days if cough continues I informed him he likely needs an outpatient CT of his chest. Medical Records I reviewed the patient's medical records. Lab Data I reviewed the patient's lab results. 04/21/23 02:15 04/21/23 02:15 Labs/Radiology: Radiology Impressions Chest X-Ray 04/21/23 02:06 IMPRESSION: No acute cardiopulmonary findings. Laboratory Results WBC 9.66 10^3/uL (3.29-11.43) 04/21/23 02:15 RBC 4.74 10^6/uL (3.85-5.65) 04/21/23 02:15 Hgb 15.70 g/dL (11.27-16.99) 04/21/23 02:15 Hct 44.4 % (37-53) 04/21/23 02:15 MCV 93.7 fl (82-101) 04/21/23 02:15 MCH 33.1 pg (27-33) H 04/21/23 02:15 MCHC 35.4 g/dL (30-55) 04/21/23 02:15 RDW 12.3 % (12.1-15.1) 04/21/23 02:15 Plt Count 268 10^3/cmm (157-399) 04/21/23 02:15 MPV 8.9 fL (7.4-10.4) 04/21/23 02:15 Neut % (Auto) 72.2 % 04/21/23 02:15 Lymph % (Auto) 18.6 % 04/21/23 02:15 [place] % (Auto) 6.6 % 04/21/23 02:15 Eos % (Auto) 1.6 % 04/21/23 02:15 Baso % (Auto) 0.2 % 04/21/23 02:15 Neut # (Auto) 6.97 10^3/uL (1.8-7.7) 04/21/23 02:15 Lymph # (Auto) 1.8 10^3/uL (0.8-4.8) 04/21/23 02:15 [place] # (Auto) 0.6 10^3/uL (0.2-0.9) 04/21/23 02:15 Eos # (Auto) 0.2 10^3/uL (0.0-0.8) 04/21/23 02:15 Baso # (Auto) 0.0 10^3/uL (0.0-0.1) 04/21/23 02:15 Nucleated RBC % (auto) 0 % 04/21/23 02:15 Nucleated RBCs # 0.0 /100WBC 04/21/23 02:15 Sodium 135 mmol/L (136-145) L 04/21/23 02:15 Potassium 3.6 mmol/L (3.5-5.1) 04/21/23 02:15 Chloride 102 mmol/L (98-107) 04/21/23 02:15 Carbon Dioxide 21 mmol/L (22-29) L 04/21/23 02:15 Anion Gap 15.6 (5-19) 04/21/23 02:15 BUN 12 mg/dL (6-20) 04/21/23 02:15 Creatinine 1.0 mg/dL (0.7-1.2) 04/21/23 02:15 GFR Calculation 79.1 mL/min (90-130) L 04/21/23 02:15 Glucose 109 mg/dL (65-115) 04/21/23 02:15 Calculated Osmolality 280 mOsm/kg (285-295) L 04/21/23 02:15 Calcium 9.0 mg/dL (8.5-10.5) 04/21/23 02:15 Total Bilirubin 0.3 mg/dL (0.15-1.2) 04/21/23 02:15 AST 28 U/L (0-40) 04/21/23 02:15 ALT 26 U/L (0-41) 04/21/23 02:15 Alkaline Phosphatase 149 U/L (40-130) H 04/21/23 02:15 NT-Pro-B Natriuret Pep < 36 pg/mL (0-125) 04/21/23 02:15 Total Protein 7.8 g/dL (6.6-8.7) 04/21/23 02:15 Albumin 4.2 g/dL (3.5-5.2) 04/21/23 02:15 Globulin 3.6 g/dL (1.3-4.6) 04/21/23 02:15 All radiology interpretation(s) finalized by discharge EKG Data EKG 1: I personally reviewed and interpreted this EKG as follows: EKG Interpretation Date: 04/21/23 EKG interpretation time: 02:05 Interpretation: nsr hr [address] or t wave abnormalities qrs 94 qtc 401 Discharge Plan Discharge Patient Disposition: Home Clinical Impression: Chest wall pain, Cough Condition: Stable Prescriptions: New hydrocodone-acetaminophen 5-325 mg tablet 1 tab PO Q6H PRN (Reason: pain) Qty: 14 0RF albuterol sulfate 90 mcg/actuation HFA aerosol inhaler 2 inh INHALATION Q6H PRN (Reason: shortness of breath or wheezing) Qty: 8 0RF Naprosyn 500 mg tablet 500 mg PO BID PRN (Reason: pain) Qty: 20 0RF No Action mupirocin 2 % ointment 1 applic topical BID Qty: 22 2RF prednisone 5 mg tablet 10 mg PO DAILY Qty: 60 0RF Hold Instructions: Dose Change Xeljanz XR 11 mg tablet extended release 24 hr 11 mg PO DAILY Qty: 30 5RF sulfamethoxazole-trimethoprim [Bactrim DS] 800-160 mg tablet 1 tab PO BID Qty: 14 0RF potassium chloride [Klor-Con M20] 20 mEq tablet,ER particles/crystals 20 meq PO DAILY Qty: 7 0RF Discharge Orders: Discharge ED (Routine); Ordered 04/21/23 Ordered By: Li Garcia Referrals: Faustino Gutierrez MD [Primary Care Provider] - 4-7 days Discharge Diet: Advance as tolerated Discharge Activity: Resume usual activity Patient Instructions: Costochondritis (ED), Chronic Cough (ED) Coding Level of Care Code ED Painting Machine Operator for Frank Koenig
[2023-04-21] MEDS: ondansetron 2 mg/ML SDV 2 mL 4 MG IVP (02:16)
[2023-04-21 02:18] LABS: Basophils % 0.2 %; Eosinophils # 0.2 10^3/uL (0.0-0.8); Eosinophils % 1.6 %; Hematocrit 44.4 % (37-53); Lymphocytes # 1.8 10^3/uL (0.8-4.8); Lymphocytes % 18.6 %; Mean Corpuscular HGB Conc 35.4 g/dL (30-55); Mean Corpuscular Hemoglobin 33.1 pg (27-33); Mean Corpuscular Volume 93.7 fl (82-101); Mean Platelet Volume 8.9 fL (7.4-10.4); Monocytes # 0.6 10^3/uL (0.2-0.9); Monocytes % 6.6 %; Neutrophils # 6.97 10^3/uL (1.8-7.7); Neutrophils % 72.2 %; Nucleated Red Blood Cells % 0 %; Platelet Count 268 10^3/cmm (157-399); Red Blood Count 4.74 10^6/uL (3.85-5.65); Red Cell Distribution Width 12.3 % (12.1-15.1); White Blood Count 9.66 10^3/uL (3.29-11.43)
[2023-04-21] MEDS: ketorolac 30 mg/mL INJ 15 MG IVP (02:18)
[2023-04-21 02:19] VITALS: RESP 20
[2023-04-21] MEDS: morphine 4 mg/mL SDV 1 mL IVP (02:19)
[2023-04-21 02:24] VITALS: PULSE 83; RESP 18; O2SAT 98
[2023-04-21 02:27] VITALS: PULSE 91; RESP 18; O2SAT 97
[2023-04-21] MEDS: ipratropium-albuterol 3 mL Neb INHALATION (02:27)
[2023-04-21 02:34] VITALS: PULSE 84
[2023-04-21 02:44] LABS: Alanine Aminotransferase 26 U/L (0-41); Albumin Level 4.2 g/dL (3.5-5.2); Alkaline Phosphatase 149 U/L (40-130); Aspartate Amino Transferase 28 U/L (0-40); Blood Urea Nitrogen 12 mg/dL (6-20); Carbon Dioxide 21 mmol/L (22-29); Chloride 102 mmol/L (98-107); Creatinine Clr Calc Pharmacy 99.0235; Globulin 3.6 g/dL (1.3-4.6); Glomerular Filtration Rate 79.1 mL/min (90-130); Glucose 109 mg/dL (65-115); Osmolality Calculated 280 mOsm/kg (285-295); Sodium 135 mmol/L (136-145); Total Bilirubin 0.3 mg/dL (0.15-1.2); Total Protein 7.8 g/dL (6.6-8.7)
[2023-04-21 02:45] LABS: Anion Gap 15.6 (5-19); Potassium 3.6 mmol/L (3.5-5.1)
[2023-04-21 02:46] LABS: NT Pro B Type Natriuretic Pept < 36 pg/mL (0-125)
[2023-04-21 03:32] VITALS: BP 136/97; PULSE 81; O2SAT 94
== END 2023-04-21 03:34 | disposition home or self-care (01) ==
PROVIDERS: Emergency Provider Emergency Medicine; PCP Family Medicine
DX: R05.9 Cough, unspecified (principal); R07.89 Other chest pain; F17.210 Nicotine dependence, cigarettes, uncomplicated
CPT/HCPCS: 71045; 80053; 83880; 85025; 93005; 94640; 96374; 96375; 99285; J1885; J2270; J2405

== ENCOUNTER 2023-05-14 10:41 | Outpatient (CLI) | payer OTHER, SELFPAY ==
[2023-05-14 11:01] LABS: Basophils % 0.4 %; Eosinophils # 0.1 10^3/uL (0.0-0.8); Eosinophils % 1.5 %; Hematocrit 43.9 % (37-53); Lymphocytes # 2.2 10^3/uL (0.8-4.8); Lymphocytes % 27.5 %; Mean Corpuscular HGB Conc 35.5 g/dL (30-55); Mean Corpuscular Hemoglobin 33.3 pg (27-33); Mean Corpuscular Volume 93.8 fl (82-101); Mean Platelet Volume 9.1 fL (7.4-10.4); Monocytes # 0.5 10^3/uL (0.2-0.9); Monocytes % 6.4 %; Neutrophils # 5.01 10^3/uL (1.8-7.7); Neutrophils % 63.9 %; Nucleated Red Blood Cells % 0 %; Platelet Count 264 10^3/cmm (157-399); Red Blood Count 4.68 10^6/uL (3.85-5.65); Red Cell Distribution Width 12.7 % (12.1-15.1); White Blood Count 7.83 10^3/uL (3.29-11.43)
[2023-05-14 11:03] LABS: Erythrocyte Sedimentation Rate 4 mm/hr (0-10)
[2023-05-14 11:25] LABS: Alanine Aminotransferase 24 U/L (0-41); Albumin Level 4.3 g/dL (3.5-5.2); Alkaline Phosphatase 123 U/L (40-130); Anion Gap 13.7 (5-19); Aspartate Amino Transferase 27 U/L (0-40); Blood Urea Nitrogen 11 mg/dL (6-20); Calcium 8.8 mg/dL (8.5-10.5); Carbon Dioxide 28 mmol/L (22-29); Chloride 103 mmol/L (98-107); Globulin 2.6 g/dL (1.3-4.6); Glomerular Filtration Rate 79.1 mL/min (90-130); Glucose 71 mg/dL (65-115); Osmolality Calculated 290 mOsm/kg (285-295); Potassium 3.7 mmol/L (3.5-5.1); Sodium 141 mmol/L (136-145); Total Bilirubin 0.5 mg/dL (0.15-1.2); Total Protein 6.9 g/dL (6.6-8.7)
== END 2023-05-14 10:42 | disposition home or self-care (01) ==
LOC: LAB 10:43
PROVIDERS: PCP Family Medicine; Visit Provider Internal Medicine
DX: R76.8 Other specified abnormal immunological findings in serum (principal)
CPT/HCPCS: 36415; 80053; 85025; 85651; 86140